=== PATIENT | female | born 1995 | race African-American/Black ===

== ENCOUNTER 2022-08-26 21:06 | Emergency (ER) | payer MEDICAID ==
[2022-08-26 21:52] LABS: #Eosinphils 0.3 thou/uL (0.0-0.7); #Lymphocytes 1.4 thou/uL (1.20-3.40); #Monocytes 0.5 thou/uL (0.11-0.59); #Neutrophils 5.3 thou/uL (1.40-6.50); %Basophils 0.5 % (0.0-1.0); %Eosinophils 3.5 % (0.0-10.0); %Lymphocytes 18.9 % (21.0-51.0); %Monocytes 6.2 % (0.0-10.0); Hemoglobin 10.7 g/dL (12.0-16.0); Mean Corpuscular Hemoglobin 27.4 pg (27.0-31.0); Mean Corpuscular Volume 82.9 fl (78.0-98.0); Mean Platelet Volume 6.2 fL (7.4-10.4); Platelet Count 318 10x3/uL (130-400); RBC Distribution Width 12.6 % (11.5-14.5); Red Blood Cell (RBC) Count 3.89 mill/uL (4.20-5.40); White Blood Cell (WBC) Count 7.5 10x3/uL (4.8-10.8)
[2022-08-26 21:54] LABS: Bilirubin Small (Negative); Blood, Urine Large (Negative); Clarity Turbid (Clear); Glucose, Urine (Dipstick) Negative (Negative); Ketone, Urine Trace mg/dL (Negative); Leukocyte Moderate (Negative); Nitrite Negative (Negative); Protein, Urine (Dipstick) > or equal to 300 mg/dL (Neg-Trace); pH, Urine 6.5 (5.0-9.0)
[2022-08-26 21:57] LABS: Bacteria/HPF None Seen HPF (None Seen); RBC/HPF Greater than 50 HPF (0-3); Specific Gravity, Urine 1.027 (1.002-1.036); Transitional Epithelial 0-3 HPF (None Seen); WBC/HPF Greater Than 50 HPF (0-3)
[2022-08-26] MEDS ORDERED: Morphine 2 MG/ML VIAL ONE (22:12)
[2022-08-26] MEDS ORDERED: Sodium Chloride 0.9% 1,000 ML ONE (22:12)
[2022-08-26] MEDS ORDERED: Ondansetron PF 4 MG/2 ML Vial ONE (22:12)
[2022-08-26 22:16] LABS: AST (SGOT) 17 U/L (5-34); Albumin 3.7 g/dL (3.5-5.0); Anion Gap 11 mmol/L (10-20); BUN (Urea Nitrogen) 8 mg/dL (7.0-18.7); Bilirubin, Total 0.3 mg/dL (0.2-1.2); Calc. Creatinine Clearance 0 mL/min (70-130); Calcium 9.3 mg/dL (7.8-10.44); Carbon Dioxide 24 mmol/L (22-29); Chloride 105 mmol/L (98-107); Estimated GFR 121; Globulin 3.2 g/dL (2.4-3.5); Glucose 105 mg/dL (70-105); Potassium 3.6 mmol/L (3.5-5.1); Protein, Total 6.9 g/dL (6.0-8.3); Sodium 136 mmol/L (136-145)
[2022-08-26 22:40] LABS: ALT (SGPT) 11 U/L (8-55); Alkaline Phosphatase 51 U/L (40-110)
[2022-08-26] MEDS ORDERED: cefTRIAXone\\ROCEPHIN 2 GM VIAL ONE (22:58)
[2022-08-26] MEDS ORDERED: Phenazopyridine HCl 95 MG TAB ONE (22:58)
== END 2022-08-26 22:34 | disposition home or self-care (01) ==
LOC: MADERS 21:06
DX: O23.13 Infections of bladder in pregnancy, third trimester (principal); N30.01 Acute cystitis with hematuria; Z3A.30 30 weeks gestation of pregnancy
CPT/HCPCS: 80053; 81003; 81015; 85025; 96365; 96375; J0696; J2272; J2405; J7050